=== PATIENT | female | born 1950 | race Caucasian/White ===

== ENCOUNTER → 2017-01-15 | Outpatient (CLI) | payer BC ==
[~2017-01-15] MED LIST: CELEBREX PO; DYAZIDE 37.5/251 CAP PO; LOPRESSOR PO; PHENERGAN PO; VASOTEC PO
--- NOTE | ~2017-01-15 | US77 ---
[facility] A Service of [facility] RADIOLOGY TEXT RESULTS PATIENT: VICK FELICIANO LOCATION: [facility] : 54 UNIT #: [id number] AGE: [address]: Abebe Husain MD SEX: F ORDER DR: [id number] [facility] [address] [place], [place] [address] [id number] O MR#: [id number] Acc #: [id number] NAME: VICK FELICIANO : 1950 SEX: F STUDY DATE/TIME: 01/15/2017 12:40 UNIT: US ROOM: STUDY DESCRIPTION: US Kidney Bilateral Complete Attending Physician: Abebe Husain M.D. Referring Physician: Abebe Husain M.D. Ordering Physician: Abebe Husain M.D. Primary Care Physician: King Mcnamara M.D. MEDICAL IMAGING REPORT This report is preliminary unless electronic signature is present EXAM Renal ultrasound INDICATIONS Renal mass. Prior partial nephrectomy on the right kidney for renal cell carcinoma. History of renal calculi. COMPARISON CT abdomen and pelvis dated 06/24/2016. FINDINGS Right kidney measures 10 cm. Cortical thinning in the superior right kidney suggests site of the patient's prior partial nephrectomy. There is some mild renal cortical thinning. The left kidney measures 9.4 cm. There is some mild renal cortical thinning. Patient does have some benign cysts. No suspicious mass. The largest cyst measures 1.5 cm. There is no hydronephrosis. The bladder is unremarkable. IMPRESSION 1. Benign left renal cysts. 2. Mild renal cortical thinning. No hydronephrosis. Dictated by... Mikel Dawson M.D. THIS IS AN ELECTRONICALLY VERIFIED REPORT Mikel Dawson M.D. at 01/17/2017 2:15 PM RPC/pcl [facility] A Service of [facility] RADIOLOGY TEXT RESULTS PATIENT: VICK FELICIANO LOCATION: [facility] : 54 UNIT #: [id number] AGE: [address]: Abebe Husain MD SEX: F ORDER DR: TD: 01/17/2017 10:16 JOB #: [id number] MEDICAL IMAGING REPORT Page 1 of 1 COPY
== END | disposition home or self-care (01) ==
LOC: CGUS 12:19
DX: N28.89 Other specified disorders of kidney and ureter (principal); N28.1 Cyst of kidney, acquired
CPT/HCPCS: 76770